=== PATIENT | female | born 1970 | race Caucasian/White ===

== ENCOUNTER 2016-05-07 00:36 | Emergency (ER) | payer BC ==
--- NOTE | 2016-05-07 01:11 | EDM.PDOC ---
ED HISTORY OF PRESENT ILLNESS - General Chief Complaint: Respiratory Problem Stated Complaint: FEVER Time Seen by Provider: 05/07/16 01:06 - History of Present Illness INITIAL COMMENTS - FREE TEXT/NARRATIVE: HISTORY AND PHYSICAL: History of present illness: Patient 46-year-old female presented to general body aches sore throat cough states she had the flu approximately one week prior to that she did improve significantly until the last day or 2 but no vomiting no diarrhea no other complaints Review of systems: As per history of present illness and below otherwise all systems reviewed and negative. Past medical history: As per history of present illness and as reviewed below otherwise noncontributory. Surgical history: As per history of present illness and as reviewed below otherwise noncontributory. Social history: No reported history of drug or alcohol abuse. Family history: As per history of present illness and as reviewed below otherwise noncontributory. Physical exam: HEENT: Atraumatic, normocephalic, pupils reactive, negative for conjunctival pallor or scleral icterus, mucous membranes moist, throat clear, neck supple, nontender, trachea midline. Lungs: Clear to auscultation, breath sounds equal bilaterally, chest nontender. Heart: S1S2, regular, negative for clicks, rubs, or JVD. Abdomen: Soft, nondistended, nontender. Negative for masses or hepatosplenomegaly. Negative for costovertebral tenderness. Pelvis: Stable nontender. Genitourinary: Deferred. Rectal: Deferred. Extremities: Atraumatic, negative for cords or calf pain. Neurovascular unremarkable. Neuro: Awake, alert, oriented. Cranial nerves II through XII unremarkable. Cerebellum unremarkable. Motor and sensory unremarkable throughout. Exam nonfocal. Diagnostics: CBC CMP strep chest x-ray Therapeutics: Done Impression: #1 viral syndrome Definitive disposition and diagnosis as appropriate pending reevaluation and review of above. - Related Data Allergies/ADRs: Allergies Allergy/AdvReac Type Severity Reaction Status Date / Time No Known Allergies Allergy Verified 05/07/16 00:38 Home Meds: Home Meds . [No Known Home Meds] 01/02/14 [History] Past Medical History Other Respiratory History: Former smoker, Quit 10 yrs ago (estimates smoked 5-6 yrs) Other Neuro History: "Some headaches on & off" - Infectious Disease History Infectious Disease History: Reports: Chicken pox - Past Surgical History Other Female Surgeries/Procedures: Reversal of Tubal ligation Other Musculoskeletal Surgeries/Procedures:: Right Knee arthroscopy Social & Family History - Tobacco Use Smoking Status *Q: Never Smoker Years of Tobacco use: 8 Used Tobacco, but Quit: Yes Second Hand Smoke Exposure: No - Alcohol Use Days Per Week of Alcohol Use: 0 - Recreational Drug Use Recreational Drug Use: No Drug Use in Last 12 Months: No ED ROS GENERAL - Review of Systems Review Of Systems: ROS reveals no pertinent complaints other than HPI. ED EXAM, GENERAL - Physical Exam Exam: See Below (See dictated) Course - Vital Signs Last Recorded V/S: Last Vital Signs Temp 37.3 C 05/07/16 00:38 Pulse 102 H 05/07/16 00:38 Resp 16 05/07/16 00:38 BP 113/63 05/07/16 00:38 Pulse Ox 97 05/07/16 00:38 - Orders/Labs/Meds Orders: Active Orders 24 hr Category Date Time Status Chest 2V [CR] Stat Exams 05/07/16 00:41 Taken CMP [COMPREHENSIVE METABOLIC PN,CMP] [CHEM] Stat Lab 05/07/16 01:20 Received CULTURE STREP A CONFIRMATION [RM] Stat Lab 05/07/16 00:44 Results STREP SCRN A RAPID W CULT CONF [RM] Stat Lab 05/07/16 00:44 Results Labs: Laboratory Tests 05/07/16 Range/Units 01:20 WBC 6.12 (4.0-11.0) K/uL RBC 4.75 (4.30-5.90) M/uL Hgb 13.3 (12.0-16.0) g/dL Hct 40.2 (36.0-46.0) % MCV 84.6 (80.0-98.0) fL MCH 28.0 (27.0-32.0) pg MCHC 33.1 (31.0-37.0) g/dL RDW Std Deviation 43.0 (28.0-62.0) fl RDW Coeff of Jyoti 14 (11.0-15.0) % Plt Count 84 L (150-400) K/uL MPV 9.70 (7.40-12.00) fL Neut % (Auto) 80.3 H (48.0-80.0) % Lymph % (Auto) 10.5 L (16.0-40.0) % [place] % (Auto) 9.0 (0.0-15.0) % Eos % (Auto) 0.0 (0.0-7.0) % Baso % (Auto) 0.2 (0.0-1.5) % Neut # 4.9 (1.4-5.7) K/uL Lymph # 0.6 (0.6-2.4) K/uL Obion # 0.6 (0.0-0.8) K/uL Eos # 0.0 (0.0-0.7) K/uL Baso # 0.0 (0.0-0.1) K/uL Nucleated RBC % 0.0 /100WBC Nucleated RBCs # 0 K/uL Departure - Departure Time of Disposition: :57 Disposition: Home, Self-Care 01 Condition: good Clinical Impression: Influenza Forms: ED Department Discharge Additional Instructions: The following information is given to patients seen in the emergency department who are being discharged to home. This information is to outline your options for follow-up care. We provide all patients seen in our emergency department with a follow-up referral. The need for follow-up, as well as the timing and circumstances, are variable depending upon the specifics of your emergency department visit. If you don't have a primary care physician on staff, we will provide you with a referral. We always advise you to contact your personal physician following an emergency department visit to inform them of the circumstance of the visit and for follow-up with them and/or the need for any referrals to a consulting specialist. The emergency department will also refer you to a specialist when appropriate. This referral assures that you have the opportunity for followup care with a specialist. All of these measure are taken in an effort to provide you with optimal care, which includes your followup. Under all circumstances we always encourage you to contact your private physician who remains a resource for coordinating your care. When calling for followup care, please make the office aware that this follow-up is from your recent emergency room visit. If for any reason you are refused follow-up, please contact the [facility] emergency department at and asked to speak to the emergency department charge nurse. Push fluids clear liquids as directed Motrin, as directed follow up primary medical doctor one to 2 days return as needed as discussed - My Orders Last 24 Hours: My Active Orders 05/07/16 00:41 Chest 2V [CR] Stat 05/07/16 00:44 CULTURE STREP A CONFIRMATION [RM] Stat STREP SCRN A RAPID W CULT CONF [RM] Stat 05/07/16 01:20 CMP [COMPREHENSIVE METABOLIC PN,CMP] [CHEM] Stat - Assessment/Plan Last 24 Hours: My Active Orders 05/07/16 00:41 Chest 2V [CR] Stat 05/07/16 00:44 CULTURE STREP A CONFIRMATION [RM] Stat STREP SCRN A RAPID W CULT CONF [RM] Stat 05/07/16 01:20 CMP [COMPREHENSIVE METABOLIC PN,CMP] [CHEM] Stat
[2016-05-07 01:47] LABS: CHLORIDE,CL 105 mmol/L (98-110); SODIUM,NA 136 mmol/L (136-146)
[2016-05-07 02:24] VITALS: BP 113/62
--- NOTE | 2016-05-08 10:52 | CR ---
EXAM DATE: 05/07/16 PATIENT'S AGE: 46 Patient: SEAN BARFIELD Facility: [place], [place] Site . Site : 1970 Study: XRay Chest [id number]/13/2017 1:01:28 AM Ordering Physician: Doctor Haq Final Report: INDICATION: cough x3 weeks TECHNIQUE: Chest radiograph 2 views on 3 films COMPARISON: None FINDINGS: Cardiovascular and mediastinum: The cardiac silhouette is normal in appearance and size. Mediastinum is within normal limits. Lungs and pleural spaces: Both lungs are unremarkable in appearance. No sign of pleural effusion. No pneumothorax is seen. Bones and soft tissues: No significant findings. Overlying artifacts from brassiere clips noted. IMPRESSION: 1. No acute cardiopulmonary disease seen. Dictated by: Mauro Dwyer MD @ 05/07/2016 01:03:37 (Electronic Signature) Report Signed by Proxy and Original Signed Document filed in the Medical Record. JENNIFFER
== END 2016-05-07 02:23 | disposition home or self-care (01) ==
LOC: MW.ED 00:36
DX: J10.1 Influenza due to other identified influenza virus with other respiratory manifestations (principal); B34.9 Viral infection, unspecified; Z98.890 Other specified postprocedural states
CPT/HCPCS: 36415; 71020; 71020-26; 80053; 85025; 87081; 87804; 87880; 99282; 99283